=== PATIENT | male | born 1950 | race Caucasian/White ===

== ENCOUNTER 2022-03-16 19:00 | Outpatient (CLI) | payer MEDICAID, MEDICARE, OTHER | END 2022-03-16 19:01 | disposition home or self-care (01) | LOC: SLEEPLAB 19:00 | PROVIDERS: ATTEND Nurse Practitioner Family | DX: G47.33 Obstructive sleep apnea (adult) (pediatric) (principal); R09.89 Other specified symptoms and signs involving the circulatory and respiratory systems; R51.9 Headache, unspecified; F41.9 Anxiety disorder, unspecified; F32.9 Major depressive disorder, single episode, unspecified; K21.9 Gastro-esophageal reflux disease without esophagitis; R06.83 Snoring; I10 Essential (primary) hypertension; G47.10 Hypersomnia, unspecified; J44.9 Chronic obstructive pulmonary disease, unspecified; E11.9 Type 2 diabetes mellitus without complications; G47.00 Insomnia, unspecified; E66.9 Obesity, unspecified; Z68.39 Body mass index [BMI] 39.0-39.9, adult | CPT/HCPCS: 95811 ==

== ENCOUNTER 2022-04-14 13:17 | Outpatient (CLI) | payer OTHER, MEDICAID | END 2022-04-14 13:18 | disposition home or self-care (01) | LOC: BICMAMMO 13:17 | PROVIDERS: ATTEND Nurse Practitioner Family | DX: N64.4 Mastodynia (principal) | CPT/HCPCS: 77066; G0279 ==

== ENCOUNTER 2022-05-16 19:30 | Outpatient (CLI) | payer OTHER | END 2022-05-16 19:31 | disposition home or self-care (01) | LOC: SLEEPLAB 19:30 | PROVIDERS: ATTEND Nurse Practitioner Family | DX: G47.33 Obstructive sleep apnea (adult) (pediatric) (principal) | CPT/HCPCS: 95811 ==

== ENCOUNTER 2023-03-28 13:09 | Outpatient (CLI) | payer OTHER, MEDICAID | END 2023-03-28 13:10 | disposition home or self-care (01) | LOC: DTY/OP 13:09 | PROVIDERS: ATTEND Nurse Practitioner Family | DX: E11.65 Type 2 diabetes mellitus with hyperglycemia (principal); Z68.38 Body mass index [BMI] 38.0-38.9, adult | CPT/HCPCS: 97802 ==

== ENCOUNTER 2023-04-11 09:03 | Outpatient (CLI) | payer OTHER, MEDICAID | END 2023-04-11 09:04 | disposition home or self-care (01) | LOC: CT 09:03 | PROVIDERS: ATTEND Internal Medicine Hematology & Oncology | DX: Z12.2 Encounter for screening for malignant neoplasm of respiratory organs (principal); K76.0 Fatty (change of) liver, not elsewhere classified; Z87.891 Personal history of nicotine dependence | CPT/HCPCS: 71271 ==

== ENCOUNTER 2023-04-26 09:30 | Outpatient (CLI) | payer OTHER, MEDICAID | END 2023-04-26 09:31 | disposition home or self-care (01) | LOC: PET 09:30 | PROVIDERS: ATTEND Internal Medicine Hematology & Oncology | DX: R91.8 Other nonspecific abnormal finding of lung field (principal) | CPT/HCPCS: 78815; A9552 ==

== ENCOUNTER 2025-01-13 10:22 | Outpatient (CLI) | payer OTHER, MEDICAID | END 2025-01-13 10:23 | disposition home or self-care (01) | LOC: BICCT 10:22 | PROVIDERS: ATTEND Internal Medicine | DX: Z12.2 Encounter for screening for malignant neoplasm of respiratory organs (principal); Z87.891 Personal history of nicotine dependence | CPT/HCPCS: 71271 ==

== ENCOUNTER 2025-01-14 14:55 | Emergency (ER) | payer OTHER, MEDICAID ==
[2025-01-14] MEDS ORDERED: Lidocaine 1% w/Epinephrine 1:100K 20 ML VIAL ONE (16:13)
== END 2025-01-14 17:27 | disposition home or self-care (01) ==
LOC: ERS 14:55
DX: L02.212 Cutaneous abscess of back [any part, except buttock and flank] (principal); E11.9 Type 2 diabetes mellitus without complications; I48.91 Unspecified atrial fibrillation
CPT/HCPCS: 10060